=== PATIENT | male | born 1990 | race Caucasian/White ===

== ENCOUNTER 2016-09-17 08:50 | Emergency (ER) | payer OTHER ==
[~2016-09-17] VITALS: Ht 182.9 cm; Wt 72.6 kg
[2016-09-17 09:07] VITALS: BP 126/77; PULSE 95; RESP 18; O2SAT 99
--- NOTE | 2016-09-17 09:18 | ED.REPORT ---
HPI-Extremity Problem Lower Date of Service September 17, 2016 ED Provider: Babak Yin MD Patient is a 25 year old with a history of methamphetamine abuse who presents to the ED complaining of left ankle pain onset a week ago. Associated symptoms include ankle and leg swelling, diaphoresis, chest pain, palpitations, fatigue and feeling "hot around his neck". He denies shortness of breath or inability to bear weight. The patient reports that he dropped a table on his foot last week and it started swelling a day later up to his knee. Patient denies history of heart problems but has felt like there has been something wrong with his heart for the past year. The patient last smoked meth 5 days ago and last used IV meth a month ago. Nursing Notes Stated Complaint: FOOT/ANKLE/ HEART PAIN Chief Complaint: Extremity Trauma Nursing Notes Reviewed: Yes (Phase III Development, notes indicate only "foot, ankle, heart pain") Allergies: Coded Allergies: No Known Allergies (Unverified , 09/17/16) No Active Prescriptions or Reported Meds General Time Seen by MD: 09:17 Chief Complaint Ankle injury left Hx Obtained From: Patient Arrived By: Walk-in Onset Occurred: 1 week ago Symptom Duration: Since onset Location: : Ankle left Associated with: Reports: Chest pain, Denies: Unable to bear weight Recent Healthcare: No recent doctor visit, No recent hospitalization Past Medical History Past Medical History denies (History of methamphetamine abuse, smokes normally, occasionally injects) Past Surgical History denies Social History Drug Use: In recovery (5 days clean), IV drugs, Meth Ambulatory Status Independent Review of Systems Musculoskeletal: Reports: Extremity pain (left ankle), Extremity swelling ( left leg/ankle) Skin: Reports Diaphoresis Complete sys rev & neg: except as marked. Respiratory: Denies: Non-productive cough, Shortness of breath Cardiovascular: Reports: Chest pain, Palpitations Physical Exam Initial Vital Signs Vital Signs (First) Date Time Temp Pulse Resp B/P Pulse Ox O2 Delivery O2 Flow Rate FiO2 09/17/16 09:07 37.3 95 18 126/77 99 Room Air Initial VS: Reviewed, Unavailable (no vitals on chart, ordered), Vital signs normal Lower Extremity / Pelvis / MS: Atraumatic, Full range of motion, Neurologic intact, Vascular intact no swelling of foot or ankle Ankle / Foot: Atraumatic, Full range of motion, Neurologic intact, Vascular intact no point tenderness no malleolus tenderness no anterior drawer General/Constitutional: Awake, Alert, No acute distress Behavior: Positive: Anxious appears thin Respiratory / Chest: Atraumatic, No respiratory distress Skin: Atraumatic, Color NL, No rash, Warm, Dry Neurologic: Oriented X3, Speech NL, No motor deficits, No sensory deficits good distal pulses Head / Eyes: Atraumatic, Normocephalic, PERRL, EOMI Neck: Atraumatic, Supple, Full range of motion, No JVD Psychiatric: Affect NL, Mood NL Interpretation & Diagnostics Lab Results Interpretation Result Diagram: 09/17/16 0955 09/17/16 0955 Test 09/17/16 09:55 White Blood Count 7.2th/mm3 (3.8-10.1) Red Blood Count 4.89mil/mm3 (4.40-5.80) Hemoglobin 15.5g/dL (13.8-17.2) Hematocrit 43.6% (41.0-50.0) Mean Corpuscular Volume 89.2fL (81-100) Mean Corpuscular Hemoglobin 31.7pg (27.0-35.0) Mean Corpuscular Hemoglobin Concent 35.6% (32.0-37.0) Red Cell Distribution Width 12.0% (12.3-15.4) Platelet Count 323bil/L (150-400) Neutrophils (%) (Auto) 65.5% (40-74) Lymphocytes (%) (Auto) 24.6% (14-46) Monocytes (%) (Auto) 6.3% (4-12) Eosinophils (%) (Auto) 3.1% (0-5) Basophils (%) (Auto) 0.4% (0-3) D-Dimer < 0.50mg/L FEU (<0.50) Sodium Level 138mEq/L (134-144) Potassium Level 4.5mEq/L (3.5-5.2) Chloride Level 98mEq/L (97-108) Carbon Dioxide Level 23mmol/L (18-29) Blood Urea Nitrogen 11mg/dL (6-20) Creatinine 0.83mg/dL (0.76-1.27) Estimat Glomerular Filtration Rate 121mL/min (>59) Glucose Level 113mg/dL (60-99) Calcium Level 9.9mg/dL (8.5-10.1) Total Bilirubin 0.2mg/dL (0.0-1.2) Aspartate Amino Transf (AST/SGOT) 22U/L (0-50) Alanine Aminotransferase (ALT/SGPT) 18U/L (0-44) Alkaline Phosphatase 131U/L (25-150) Troponin T 0.010ug/L (0.0-0.011) Total Protein 7.9g/dL (6.4-8.4) Albumin 4.6g/dL (3.4-5.0) Thyroid Stimulating Hormone (TSH) 0.801uIU/mL (0.450-4.500) Hold Henriquez Top Tube Received (Received) Lab Results Interpretation: CBC normal CMP normal Troponin negative D-dimer negative ECG Interpretation ECG Interpretation: normal repol for age Time: 10:56 Interpreted by: ED physician Normal ECG Interpretation: Normal rate (72), Normal sinus rhythm X-Ray Chest Interpretation Chest Xray Interpretation: IMPRESSION: Negative chest radiographs. Dictated by: Justen Goodman M.D. on 09/17/2016 at 9:59 Approved by: Justen Goodman M.D. on 09/17/2016 at 10:00 View: Portable, 1 view Interpretation / Wet Read by: Interpret - Radiologist X-Ray Interpretation Xray Interpretation: IMPRESSION: Negative left ankle radiographs. Dictated by: Justen Goodman M.D. on 09/17/2016 at 10:19 Approved by: Justen Goodman M.D. on 09/17/2016 at 10:19 X-Ray Ordered: Ankle left Interpretation / Wet Read by: Interpret - Radiologist Re-Eval/Medical Decision Med Decision/Clinical Course This is a 25-year-old male with a history of methamphetamine substance abuse presents with a complaint of left ankle injury that occurred about a week ago when a heavy oak table fell on him and is still sore, as well as a complaint that "something is not right" with his heart. He has a difficult time explaining his concerns about his heart symptoms and he talks about how the veins in his arms and legs changed character, he describes a sense of intermittent palpitations-but I do not really get a history of concerning chest or cardiopulmonary symptoms from the patient. He does talk about how he had swelling and much of his left leg over the past week and that it has resolved. His d-dimer is negative, there are no clinical findings of a DVT or PE evident. His vitals are normal,'s physical exam is normal, his labs are normal. He has no findings of acute coronary syndrome, myocardial infarction, pulmonary embolus, pneumothorax. He is no findings of heart failure. He has no findings of pneumonia, no clinical findings of sepsis or infection or evident on either exam, history, or laboratory findings. The left ankle was negative as well. This point and not finding evidence of dangerous pathology. I have recommended staying clean and sober as methamphetamines can have cardiac toxicity and certainly could be causing some palpitations he describes intermittently. The patient reassured and discharged home. Routine precautions reviewed. Source of Hx: Old records Re-Evaluation/Progress : Time of Eval: 11:06 Re-Evaluation/Progress Note: Discussed results and plan for discharge. The patient understands and agrees to the plan for discharge. All questions were addressed. Differential Diagnosis: Negative: Abscess, Achilles tendon rupture, Compartment syndrome, Fracture, Proximal tibia fracture, Puncture wound, Subungual hematoma Counseled Regarding: Diagnosis, Lab results, Need for follow-up, When/why to return to ED Discharge & Departure Impression: Primary Impression: Contusion of left ankle or foot Additional Impressions: Palpitations Amphetamine abuse Disposition: Home Discharge Condition All VS Reviewed: Yes Condition: Stable Additional Instructions: 1. No fracture or injury to the bones were appreciated on x-ray of the left ankle. You have a soft tissue injury, this is expected to heal with time. Activities as tolerated. Take ibuprofen 400 800 mg 3 times a day if needed for pain. 2. Your heart tests, blood tests, chest x-ray, and EKG are all normal. A dangerous cause of her symptoms is not identified. Continue to work on staying away from methamphetamines as they can cause cardiac toxicity. 3. Return if worsening symptoms. Scribe Attestation Portions of this note were transcribed by Sasha Reed. I, Dr. Yin personally performed the history, physical exam and medical decision-making; I reviewed and confirmed the accuracy of the information in the transcribed note. Signed by: Carolyne Aguirre, 09/17/16 and 0945. Babak Yin MD September 17, 2016 09:18 Alexsandra Reed September 17, 2016 09:29
[2016-09-17 10:01] LABS: BASOPHILS % (AUTO) 0.4 % (0-3); EOSINOPHILS % (AUTO) 3.1 % (0-5); MONOCYTES % (AUTO) 6.3 % (4-12); Mean Corpuscular Hemoglobin 31.7 pg (27.0-35.0); Mean Corpuscular Volume 89.2 fL (81-100); NEUTROPHILS % (AUTO) 65.5 % (40-74); Platelet Count 323 bil/L (150-400)
--- NOTE | 2016-09-17 10:02 | DRSVH ---
PROCEDURE: X-RAY CHEST, TWO VIEWS ([id number]) INDICATIONS: CP TECHNIQUE: 2 views of the chest were acquired. COMPARISON: None. FINDINGS: Surgical changes and devices: None. Lungs and pleura: No pleural effusions or pneumothorax. Lungs are clear. Mediastinum: Mediastinal contours are normal. Heart size is normal. Bones and chest wall: No suspicious bony abnormalities. Soft tissues appear unremarkable. IMPRESSION: Negative chest radiographs. Dictated by: Justen Goodman M.D. on 09/17/2016 at 9:59 Approved by: Justen Goodman M.D. on 09/17/2016 at 10:00
--- NOTE | 2016-09-17 10:21 | DRSVH ---
PROCEDURE: X-RAY LEFT ANKLE, MINIMUM THREE VIEWS ([id number]) INDICATIONS: pain, trauma TECHNIQUE: 3 views of the ankle were acquired. COMPARISON: None. FINDINGS: Bones: No fractures or dislocations. Ankle mortise is normally aligned. No suspicious bony lesions . Soft tissues: No tibiotalar joint effusion. Achilles tendon appears normal. IMPRESSION: Negative left ankle radiographs. Dictated by: Justen Goodman M.D. on 09/17/2016 at 10:19 Approved by: Justen Goodman M.D. on 09/17/2016 at 10:19
[2016-09-17 10:30] LABS: TROPONIN T 0.01 ug/L (0.0-0.011)
[2016-09-17 11:18] VITALS: BP 122/68; PULSE 90; RESP 18; O2SAT 98
== END 2016-09-17 11:19 | disposition home or self-care (01) ==
LOC: SED 08:50
DX: S90.02XA Contusion of left ankle, initial encounter (principal); S90.32XA Contusion of left foot, initial encounter; W20.8XXA Other cause of strike by thrown, projected or falling object, initial encounter; Y93.9 Activity, unspecified; Y92.9 Unspecified place or not applicable; Y99.8 Other external cause status; F15.10 Other stimulant abuse, uncomplicated; R00.2 Palpitations